=== PATIENT | female | born 1945 | race Caucasian/White ===

== ENCOUNTER 2024-05-07 06:23 | Day surgery (SDC) | payer MEDICARE, OTHER ==
[2024-05-07] MEDS ORDERED: MIDAZOLAM 2 MG/2 ML VIAL ONE (06:38)
[2024-05-07] MEDS: PROPARACAINE 0.5% OPHTH DROPS 15 ML ONE (06:40)
[2024-05-07] MEDS: KETOROLAC 0.45% OPHTH DROPS ONE (06:40)
[2024-05-07] MEDS: CYCLOPENTOLATE 1% OPHTH DROPS 2 ML ONE (06:41)
[2024-05-07] MEDS: PHENYLEPHRINE 2.5% OPHTH 2 ML DROPS ONE (06:41)
[2024-05-07] MEDS ORDERED: EPINEPHrine 1 MG/ML AMP ONE (06:52)
[2024-05-07] MEDS ORDERED: TRIAMCIN/MOXIFLOX OPHTHALMIC 0.6 ML VIAL IO ONE (06:52)
[2024-05-07] MEDS ORDERED: TIMOLOL 0.5% OPHTH DROPS ONE (06:53)
[2024-05-07] MEDS ORDERED: BRIMONIDINE 0.2% OPHTH DROPS 5 ML ONE (06:53)
[2024-05-07] MEDS ORDERED: BSS/LIDOCAINE/EPINEPHRINE 1 ML VIAL ONE (06:53)
[2024-05-07] MEDS: LACTATED RINGERS 1,000 ML IV ONE (06:54)
--- NOTE | 2024-05-07 07:05 | ANESTHESIA ---
Pre-Anesthesia VS, & Labs - Diagnosis SENILE COMBINED CATARACT, LEFT - Procedure EXTRACTION CATARACT WITH LENS IMPLANT Vital Signs: Temp Pulse Resp BP Pulse Ox O2 Flow Rate 36.6 C 90 16 132/78 H 98 05/07/24 06:39 05/07/24 06:39 05/07/24 06:39 05/07/24 06:39 05/07/24 06:39 Height: 5 ft Weight (kg): 81.5 kg Body Mass Index: 35.1 BMI Classification: Obese - NPO >8 hours - Is Patient ?: No - Lab Results Current Lab Results: Laboratory Tests 05/07/24 06:46: POC Whole Bld Glucose 134 H Home Medications and Allergies Home Medications: Ambulatory Orders Bifidobacterium Infantis [Align] 10.5 mg ORAL DAILY 05/06/24 Ergocalciferol [Vitamin D2] See Rx Instructions .ROUTE .COMPLEX 05/06/24 Lisinopril [Zestril] 40 mg ORAL DAILY 05/06/24 Mvn/FA/K/Om3/Dha/Epa/Fish/Tea [Diabetes Health Pack] 1 tab ORAL DAILY 05/06/24 Pravastatin [Pravachol] 60 mg ORAL DAILY 05/06/24 Ubidecarenone [Co Q-10] See Rx Instructions .ROUTE .COMPLEX 05/06/24 Zolpidem [Ambien] 5 mg ORAL PRN PRN 05/06/24 amLODIPine [Norvasc] 5 mg ORAL DAILY 05/06/24 Levothyroxine [Synthroid] 88 mcg PO QDAC 05/07/24 Bifidobacterium Infantis [Align] 10.5 mg ORAL DAILY 05/06/24 Ergocalciferol [Vitamin D2] See Rx Instructions .ROUTE .COMPLEX 05/06/24 Lisinopril [Zestril] 40 mg ORAL DAILY 05/06/24 Mvn/FA/K/Om3/Dha/Epa/Fish/Tea [Diabetes Health Pack] 1 tab ORAL DAILY 05/06/24 Pravastatin [Pravachol] 60 mg ORAL DAILY 05/06/24 Ubidecarenone [Co Q-10] See Rx Instructions .ROUTE .COMPLEX 05/06/24 Zolpidem [Ambien] 5 mg ORAL PRN PRN 05/06/24 amLODIPine [Norvasc] 5 mg ORAL DAILY 05/06/24 Levothyroxine [Synthroid] 88 mcg PO QDAC 05/07/24 Allergies/Adverse Reactions: Allergies Allergy/AdvReac Type Severity Reaction Status Date / Time Sulfa (Sulfonamide AdvReac Rash Verified 05/06/24 11:32 Antibiotics) Anes History & Medical History - Anesthetic History Anesthesia Complications: reports: No previous complications Family history of Anesthesia Complications: Denies Family history of Malignant Hyperthermia: Denies - Medical History Cardiovascular: reports: Hypertension, High cholesterol Pulmonary: reports: COPD, Sleep apnea Gastrointestinal: reports: None Urinary: reports: Incontinence Neuro: reports: None Musculoskeletal: reports: None Endocrine/Autoimmune: reports: HyPOthyroidism, Other (PREDIABETIC PER PT; NO TX) Blood Disorders: reports: None Skin: reports: None Smoking Status: Former smoker (QUIT 20 YEARS AGO) Psychosocial: reports: No issues indicated History of Cancer?: Yes (NO CHEMO OR RADIATION; RESOLVED) - Surgical History Eyes Ears Nose Throat (EENT): reports: Other Results - EKG Results EKG Comparison: Reviewed EKG, Normal EKG Exam General: Alert, Oriented x3, Cooperative, No acute distress Dental: WNL Mouth Openin Fingerbreadth Neck Mobility: Normal Mallampati classification: III Thyromental Distance: 4-6 cm Mental/Cognitive Status: Alert/Oriented X3, Normal for patient Cognitive Status: Within normal limits Plan Anesthesia Type: MAC Consent for Procedure(s) Verified and Reviewed: Yes Code Status: Attempt Resuscitation ASA classification: 3-Severe systemic disease Is this case an emergency?: No
[2024-05-07] MEDS: BRIMONIDINE 0.2% OPHTH DROPS 5 ML OPTH ONE (07:38)
[2024-05-07] MEDS: EPINEPHrine 1 MG/ML AMP IR ONE (07:38)
[2024-05-07] MEDS: TIMOLOL 0.5% OPHTH DROPS OPTH ONE (07:39)
[2024-05-07] MEDS: VANCOMYCIN OPHTH (TOPICAL) 10 MG/ML SYRINGE TOP ONE (07:39)
[2024-05-07] MEDS: PROPARACAINE 0.5% OPHTH DROPS 15 ML EACHEYE ONE (07:39)
[2024-05-07] MEDS: TRIAMCIN/MOXIFLOX OPHTHALMIC 0.6 ML VIAL IO ONE (07:39)
[2024-05-07] MEDS: BSS/LIDOCAINE/EPINEPHRINE 1 ML SYRINGE IO ONE (07:39)
[2024-05-07 07:59] VITALS: BP 134/68; O2SAT 97
--- NOTE | 2024-05-07 08:02 | OPERATIVE REPORT ---
Operative Report - Other Other Information/Narrative: Date of Surgery: 05/07/24 Preop Dx: Visually significant cataract left eye. This was the first cataract surgery. Postop Dx: Same Procedure: Phacoemulsification with posterior chamber intraocular lens implant left eye Surgeon: Dr. Clay Da Silva Anesthesia: Monitored anesthesia care Complications: None Operative Indications: This is a 79-year-old F with progressive vision loss in the left eye due to 3-4+ nuclear sclerotic, and 2+ posterior subcapsular cataract. Best corrected visual acuity was 20/30 with glare to 20/150 vision in the left eye. Indications for surgery were: - Difficulty seeing words on a computer screen - Difficulty seeing words, closed captions, or game scores on TV - Difficulty seeing street signs - Difficulty driving in low light or at night - Difficulty driving at night because of headlights from other vehicles - Difficulty with glare or bright lights in any situation The patient was consented at length concerning the risks and benefits of cataract surgery after which the patient expressed a desire to proceed with surgery. Operative Procedure: The patient was taken into OR#3 and placed under monitored anesthesia care. A surgical time-out was conducted confirming correct patient, correct procedure, and correct surgical site. The patient was given topical anesthesia and then prepped and draped in the usual sterile fashion. The eye was entered at the 6 and 3 oclock positions. Intracameral Shugarcaine was injected into the anterior chamber followed by a dispersive viscoelastic. A continuous-tear curvilinear capsulorhexis was performed. The nucleus was hydrodissected and phacoemulsified. The cortex was evacuated using automated infusion and aspiration. A cohesive viscoelastic was injected into the capsular bag and a 19.0 diopter intraocular lens was inserted into the bag. Infusion and aspiration were used to evacuate the viscoelastic materials from the eye. The wounds were hydrated and the eye inflated to physiologic pressure using balanced salt solution. Approximately 0.25ml of a mixture of triamcinolone and moxifloxacin was injected trans-sclerally into the vitreous in the inferotemporal quadrant using a 30 gauge cannula. An additional 0.25ml of a mixture of triamcinolone and moxifloxacin was injected subconjunctivally in the superior quadrant for infection and inflammation prophylaxis. Wound integrity was checked with Weck-Gertrudis sponges. The patient was taken from the operating room in good condition and given post-op instructions.
[2024-05-07] MEDS: LACTATED RINGERS 850 ML IV ONE (08:18)
--- NOTE | 2024-05-07 11:24 | ANESTHESIA POST OP EVALUATION ---
Anesthesia Post Eval - Post Anesthesia Eval Vitals: Last Vital Signs Temp 36.3 C L 05/07/24 07:53 Pulse 76 05/07/24 07:53 Resp 12 05/07/24 07:53 BP 134/68 H 05/07/24 07:53 Pulse Ox 97 05/07/24 07:53 O2 Flow Rate CV Function Including HR & BP: Stable Pain Control: Satisfactory Nausea & Vomiting: Negative Mental Status: Baseline Respiratory Status: Airway Patent Hydration Status: Satisfactory Anesthesia Complications: None
== END 2024-05-07 06:24 | disposition home or self-care (01) ==
LOC: SDS 06:23
PROVIDERS: ATTEND Ophthalmology
DX: H25.812 Combined forms of age-related cataract, left eye (principal); J44.9 Chronic obstructive pulmonary disease, unspecified; R73.03 Prediabetes; E66.9 Obesity, unspecified; Z68.35 Body mass index [BMI] 35.0-35.9, adult; Z87.891 Personal history of nicotine dependence; G47.30 Sleep apnea, unspecified
CPT/HCPCS: 66984; A9270; J3490; J7120